=== PATIENT | female | born 2000 | race African-American/Black ===

== ENCOUNTER 2022-12-01 13:24 | Emergency (ER) | payer SELFPAY ==
[~2022-12-01] VITALS: Ht 170.2 cm; Wt 52.0 kg
[2022-12-01 13:57] VITALS: O2SAT 100
[2022-12-01] MEDS ORDERED: TETANUS, DIPHTHERIA, PERTUSSIS VAC/PF 0.5ML (>10YR OLD) IM ONE ×2 (14:45→17:30)
[2022-12-01] MEDS ORDERED: LIDOCAINE HCL/PF 1% 10 MG/ML 5ML VIAL INFIL ONE (14:45)
[2022-12-01] MEDS ORDERED: BACITRACIN ZINC OINT UDPKT TOP ONE ×2 (14:45→17:30)
[2022-12-01] MEDS ORDERED: LIDOCAINE HCL/PF 1% 10 MG/ML 5ML VIAL INFIL NR (16:45)
[2022-12-01] MEDS ORDERED: BACITRACIN ZINC OINT UDPKT TOP NR (17:02)
[2022-12-01] MEDS ORDERED: BO1 TP (17:17)
[2022-12-01] MEDS ORDERED: CEPH500C2 MT (17:17)
[2022-12-01 17:49] VITALS: BP 119/89; PULSE 77; RESP 19; TEMP 98.1
== END 2022-12-01 17:50 | disposition home or self-care (01) ==
LOC: ER 13:24
DX: S61.412A Laceration without foreign body of left hand, initial encounter (principal); X58.XXXA Exposure to other specified factors, initial encounter; Y93.89 Activity, other specified; Y92.89 Other specified places as the place of occurrence of the external cause; Y99.8 Other external cause status
CPT/HCPCS: 90715; 12002; 90471; 99283; J3490; Z7610; 99282

== ENCOUNTER 2022-12-11 17:20 | Emergency (ER) | payer MEDICAID ==
[~2022-12-11] VITALS: Ht 170.2 cm; Wt 52.0 kg
[~2022-12-11 17:20] MED LIST: BO1 TP; CEPH500C2 MT
[2022-12-11 17:39] VITALS: BP 94/54; PULSE 74; RESP 18; TEMP 98; O2SAT 99
== END 2022-12-11 20:55 | disposition home or self-care (01) ==
LOC: ER 17:20
DX: S61.211D Laceration without foreign body of left index finger without damage to nail, subsequent encounter (principal); S61.213D Laceration without foreign body of left middle finger without damage to nail, subsequent encounter; Z98.890 Other specified postprocedural states; X58.XXXD Exposure to other specified factors, subsequent encounter
CPT/HCPCS: 99281; Z7610 ×2

== ENCOUNTER 2023-08-28 02:34 | Emergency (ER) | payer MEDICAID ==
[~2023-08-28] VITALS: Ht 170.2 cm; Wt 53.0 kg
[2023-08-28] MEDS ORDERED: ALBUTEROL (0.083%) 2.5MG/3ML NEB HHN STA (02:40)
[2023-08-28] MEDS ORDERED: IPRATROPIUM BROMIDE (0.02%) 0.5MG/2.5ML NEB HHN STA (02:40)
[2023-08-28] MEDS ORDERED: ACETAMINOPHEN 325MG TABLET PO ONE (02:45)
[2023-08-28 03:12] VITALS: O2SAT 100
[2023-08-28 03:50] LABS: CLARITY URINE TURBID (CLEAR); COLOR URINE ORANGE (YELLOW); GLUCOSE URINE NEGATIVE (NEGATIVE); KETONES URINE NEGATIVE (NEGATIVE); LEUKOCYTE ESTERASE URINE 2+ (NEGATIVE); NITRITE URINE NEGATIVE (NEGATIVE); OCCULT BLOOD URINE 3+ (NEGATIVE); PH URINE 5.5 (4.5-8.0); PROTEIN URINE 3+ (NEGATIVE); SPECIFIC GRAVITY URINE 1.027 (1.005-1.030)
[2023-08-28 04:00] LABS: RBC URINE 25-50 /hpf (0-2); WBC URINE TNTC /hpf (0-2)
[2023-08-28 04:01] LABS: BACTERIA URINE 1+; SQUAMOUS EPITHELIAL CELL URINE 3+ /lpf (RARE/1+)
[2023-08-28] MEDS: IPRATROPIUM BROMIDE (0.02%) 0.5MG/2.5ML NEB HHN SCH (08:17)
[2023-08-28] MEDS: ALBUTEROL (0.083%) 2.5MG/3ML NEB HHN SCH (08:18)
[2023-08-28 08:35] LABS: CARBON DIOXIDE 23 mEq/L (21-32); CHLORIDE 108 mEq/L (98-107); POTASSIUM 3.9 mEq/L (3.5-5.1); SODIUM 139 mEq/L (136-145)
[2023-08-28 08:36] LABS: CALCIUM 9.3 mg/dL (8.7-10.4)
[2023-08-28 08:39] LABS: BASOPHILS % 0.8 % (0.0-2.0); HEMOGLOBIN. 7.9 g/dL (12.0-16.0); LYMPHOCYTES % 18.1 % (20.0-50.0); MEAN CORPUSCULAR HEMOGLOBIN 19.3 pg (28.0-32.0); MEAN CORPUSCULAR HGB CONC 30.5 g/dL (31.0-37.0); MEAN CORPUSCULAR VOLUME 63.4 fL (81.0-99.0); MEAN PLATELET VOLUME 8.6 fl (7.4-10.4); MONOCYTES % 3.5 % (2.0-8.0); NEUTROPHILS % 70.6 % (40.0-76.0); PLATELET 302 x1000/uL (130-400); RED BLOOD CELL COUNT 4.09 mill/uL (4.2-5.4); RED CELL DISTRIBUTION WIDTH 19.2 % (11.6-14.6); WHITE BLOOD COUNT 9.9 x1000/uL (4.5-11.0)
[2023-08-28 08:40] LABS: CREATININE 0.9 mg/dL (0.6-1.0)
[2023-08-28 08:41] LABS: GLUCOSE 83 mg/dL (70-105); UREA NITROGEN BLOOD 6 mg/dL (9-23)
[2023-08-28 08:42] LABS: ALANINE AMINOTRANSFERASE 10 IU/L (10-49); ASPARTATE AMINOTRANSFERASE 18 IU/L (<34)
[2023-08-28 08:43] LABS: ALBUMIN 4.6 g/dL (3.2-4.8); BILIRUBIN TOTAL 0.4 mg/dL (0.1-1.0); PROTEIN TOTAL 7.7 g/dL (6.0-8.3)
[2023-08-28 08:50] LABS: HCG SCREEN NEGATIVE
[2023-08-28 08:52] LABS: ADD RBC MORPHOLOGY YES; DIFFERENTIAL COMMENT 1
[2023-08-28 10:38] LABS: HYPOCHROMASIA 2+; MICROCYTOSIS 4+
[2023-08-28 10:39] LABS: ANISOCYTOSIS 3+
[2023-08-28 10:41] LABS: PLATELET ESTIMATE NORMAL; TEAR DROP CELLS 1+
[2023-08-28] MEDS ORDERED: DOXY100C5 MT (11:19)
[2023-08-28] MEDS ORDERED: CEFTRIAXONE 1GM/50ML 50 ML IV NR (11:30)
[2023-08-28] MEDS ORDERED: LIDOCAINE HCL/EPINEPHRINE 1%-EPI 1:100,000 50 ML VIAL INFIL ONE (11:45)
[2023-08-28] MEDS: DOXYCYCLINE HYCLATE 100MG CAPSULE PO NR (12:08)
[2023-08-28] MEDS: LIDOCAINE HCL 1% 20ML VIAL (Pyxis) INJ INFIL ONE (12:08)
[2023-08-28] MEDS: CEFTRIAXONE SODIUM 1G VIAL IM ONE (12:08)
[2023-08-28 12:15] VITALS: BP 105/61; PULSE 60; RESP 18; TEMP 98
== END 2023-08-28 12:28 | disposition home or self-care (01) ==
LOC: ER 02:34
DX: N39.0 Urinary tract infection, site not specified (principal)
CPT/HCPCS: 99284; 76830; 76856; 80053; 81003; 81025; 84703; 83690; 85025; 87086; 36415; 96372; J0696; J3490